=== PATIENT | male | born 1980 | race Two or more races ===

== ENCOUNTER → 2017-05-04 | Emergency (ER) | payer MEDICAID ==
[~2017-05-04] VITALS: Ht 160 cm; Wt 75.7 kg
[~2017-05-04] MED LIST: TRAM50TA2 PO
[2017-05-04 13:21] VITALS: BP 125/69
== END | disposition home or self-care (01) ==
LOC: ER 13:26
DX: G62.9 Polyneuropathy, unspecified (principal)
CPT/HCPCS: A4606; Z7610

== ENCOUNTER 2018-04-12 12:08 | Emergency (ER) | payer MEDICAID ==
[~2018-04-12] VITALS: Ht 160 cm; Wt 72.6 kg
--- NOTE | 2018-04-12 12:42 | NUR ---
PT WALKED INTO EMERGENCY ROOM WITH C/C OF TESTICLUAR PAIN PT ALERT WITH ORIENTATION X 4.
[2018-04-12 12:43] LABS: BASOPHILS % (AUTO) 0.6 % (0.0-2.0); EOSINOPHILS % (AUTO) 3.8 % (0.0-6.0); HEMATOCRIT 49 % (39-51); HEMOGLOBIN 16.2 g/dL (13.5-17.5); LYMPHOCYTES # (AUTO) 2.9 /CMM (0.8-4.8); LYMPHOCYTES % (AUTO) 37.8 % (20.0-44.0); MEAN CORPUSCULAR HEMOGLOBIN 31 PG (26.0-33.0); MEAN CORPUSCULAR HGB CONC 33 g/dl (31.0-36.0); MEAN CORPUSCULAR VOLUME 93 fL (80-96); MONOCYTES # (AUTO) 0.6 /CMM (0.1-1.30); MONOCYTES % (AUTO) 7.9 % (2.0-12.0); NEUTROPHILS % (AUTO) 49.9 % (43.0-81.0); PLATELET COUNT (AUTO) 300 /CMM (150-450); RDW COEFFICIENT OF VARIATION 12.1 (11.5-15.0); RED BLOOD CELL COUNT(AUTO) 5.22 MIL/uL (4.5-6.0); WHITE BLOOD COUNT (AUTO) 7.8 K/uL (4.3-11.0)
[2018-04-12 12:53] LABS: CALCIUM, SERUM 8.9 mg/dL (8.5-10.1); POTASSIUM 3.6 mmol/L (3.5-5.1)
[2018-04-12 12:58] LABS: ALBUMIN 3.7 g/dL (3.4-5.0); BILIRUBIN,TOTAL 0.5 mg/dL (0.2-1.0); TOTAL PROTEIN, SERUM 7.7 g/dL (6.4-8.2)
[2018-04-12 14:31] LABS: APPEARANCE,URINE Clear (CLEAR); BILIRUBIN,URINE Negative (NEGATIVE); BLOOD, URINE Negative Ery/uL (NEGATIVE); COLOR,URINE Yellow (YELLOW); KETONES,URINE Trace (NEGATIVE); LEUKOCYTE ESTERASE ,URINE Negative (NEGATIVE); NITRITE, URINE Negative (NEGATIVE); PH,URINE 5.5 (5.0-8.0); PROTEIN,URINE Negative (NEGATIVE); UGLUCOSE Negative (NEGATIVE); UROBILINOGEN,URINE 0.2 EU/dL (0.2)
[2018-04-12 14:36] LABS: BACTERIA,URINE Rare /HPF (None Seen); RBC,URINE NONE SEEN /HPF (0-2); SQUAMOUS EPITHELIAL CELL,UR Few /HPF (None Seen); WBC,URINE NONE SEEN /HPF (0-3)
[2018-04-12 15:01] VITALS: BP 110/64
== END 2018-04-12 14:11 | disposition home or self-care (01) ==
LOC: ER 12:11
DX: N43.3 Hydrocele, unspecified (principal); K59.00 Constipation, unspecified
CPT/HCPCS: 36415; 76870-TC; 80053-TC; 81000-TC; 85025-TC; 87086-TC; A4606; Z7610

== ENCOUNTER 2018-05-16 19:42 | Emergency (ER) | payer MEDICAID ==
[~2018-05-16] VITALS: Ht 162.6 cm; Wt 75.3 kg
[2018-05-16 19:54] VITALS: BP 138/67
== END 2018-05-16 20:52 | disposition home or self-care (01) ==
LOC: ER 19:45
DX: K64.8 Other hemorrhoids (principal)
CPT/HCPCS: 99283; A4606; Z7610

== ENCOUNTER 2018-09-26 13:08 | Emergency (ER) | payer MEDICAID ==
[~2018-09-26] VITALS: Ht 162.6 cm; Wt 74.8 kg
[2018-09-26 13:13] VITALS: BP 133/87
--- NOTE | 2018-09-26 14:27 | NUR ---
Patient discharged to home in stable condition. Written and verbal after care instructions given. Patient verbalizes understanding of instruction.
== END 2018-09-26 14:48 | disposition home or self-care (01) ==
LOC: ER 13:09
DX: S16.1XXA Strain of muscle, fascia and tendon at neck level, initial encounter (principal); G89.29 Other chronic pain; G56.12 Other lesions of median nerve, left upper limb; X58.XXXA Exposure to other specified factors, initial encounter; Y93.B9 Activity, other involving muscle strengthening exercises; Y92.89 Other specified places as the place of occurrence of the external cause; Y99.8 Other external cause status
CPT/HCPCS: 99283; A4606; Z7610

== ENCOUNTER 2022-01-16 18:26 | Emergency (ER) | payer MEDICAID ==
[~2022-01-16] VITALS: Ht 160 cm; Wt 81.6 kg
[2022-01-16 18:44] VITALS: BP 118/69
--- NOTE | 2022-01-16 20:07 | NUR ---
Patient eloped from facility. [facility] notified.
== END 2022-01-16 20:16 | disposition left against medical advice (07) ==
LOC: ER 18:32
DX: R07.0 Pain in throat (principal); Z79.899 Other long term (current) drug therapy

== ENCOUNTER 2024-05-30 16:38 | Emergency (ER) | payer MEDICAID ==
[~2024-05-30] VITALS: Ht 162.6 cm; Wt 77.1 kg
[2024-05-30] MEDS ORDERED: CETI1SOL7 PO (19:25)
[2024-05-30] MEDS: cetrizine 10 MG TABLET PO ONE (19:30)
[2024-05-30] MEDS ORDERED: cetrizine 10 MG TABLET ONE (19:41)
[2024-05-30 19:48] VITALS: BP 118/68; TEMP 98; O2SAT 99
== END 2024-05-30 19:49 | disposition home or self-care (01) ==
LOC: ER 17:03
DX: T78.40XA Allergy, unspecified, initial encounter (principal); R20.2 Paresthesia of skin; X58.XXXA Exposure to other specified factors, initial encounter